=== PATIENT | male | born 1985 | race Caucasian/White ===

== ENCOUNTER 2018-12-01 18:37 | Emergency (ER) | payer MEDICAID, SELFPAY ==
[2018-12-01 18:38] VITALS: BP 136/100; PULSE 96; RESP 17; TEMP 37; O2SAT 98; BMI 24.9
--- NOTE | 2018-12-01 18:45 | RAD_ITS ---
STUDY: X-RAY - RIGHT SHOULDER REASON FOR EXAM: Male, 33 years old. Fall and pain TECHNIQUE: 2 view(s) of the shoulder. COMPARISON: None. FINDINGS: Normal glenohumeral articulation. Mild acromioclavicular separation. There is 6 mm of upward displacement of the clavicle relative to the acromion. Normal acromion. Normal humeral head and visualized proximal humerus. The soft tissue structures are unremarkable. Normal visualized pulmonary apex. RAD/Shoulder min 2 Views IMPRESSION: Mild acromioclavicular separation. No fractures are seen. Electronically Signed: Torsten Alcazar MD at 19:01 EDT Tel , Service support ,
--- NOTE | 2018-12-01 19:14 | ED.DEP ---
ED Disposition - Plan for ED Patient: Instructions: ED Sprain AC Joint Referrals: Care Physician,No Primary [Primary Care Provider] - Javon Ortiz MD [STAFF PHYSICIAN] - Additional Instructions: Take Motrin 600 mg 3 times a day for pain ice elevation the sling
[2018-12-01] MEDS: Ibuprofen 400 MG Tablet PO (19:15)
[2018-12-01] MEDS: Ketorolac 60 MG/2 ML Vial IM (19:15)
--- NOTE | 2018-12-01 19:15 | ED.VISSUMM ---
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, he was playing kickball rounding the bases when he tripped and he landed awkwardly in his right shoulder he has only complaints of right shoulder pain, no other complaints no head neck chest or abdominal pain Physical Examination: [] v Signs are within normal range General, no distress resting comfortably HEENT is generally unremarkable The neck is supple no adenopathy Cardiovascular, regular rate and rhythm Lungs, clear bilateral Abdomen, soft nontender Extremities, no clubbing cyanosis or edema, he has an abrasion over the right shoulder region, there is no instability deformity, he can move the shoulder but has some discomfort, he points really to the anterior clavicle region, the humerus elbow forearm wrist and hand are unremarkable 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 and normal function to the wrist hand and thumb movement, the rest of his exam is unremarkable Neurologic, awake alert answering questions appropriately moving all 4 extremities Test Results: [] Emergency Department Course and Treatment: [] X-ray per radiology shows an AC joint type separation 1 versus 2 not total I explained this the patient I spent the concept of other occult injuries need to follow with orthopedics, He is treated with IM Toradol will try to provide him home pack for Motrin as apparently he has some type of special requirement related to his prescriptions or pain management that he can only get them through one type of provider or pharmacy he understands that he can use [id number] medications for this and follow-up with orthopedics wear the sling and ice Treatment Plan: [] Disposition: [] Home stable Impression: [] Fall with right shoulder injury AC joint separation This note was generated with [employer] dictation software. It may contain incorrect words, spelling, and punctuation that were not noted in review of the chart prior to signing ED Disposition - Plan for ED Patient: Instructions: ED Sprain AC Joint Referrals: Javon Ortiz MD [STAFF PHYSICIAN] - Care Physician,No Primary [Primary Care Provider] - Additional Instructions: Take Motrin 600 mg 3 times a day for pain ice elevation the sling
--- NOTE | 2018-12-01 19:18 | ED.DCSUM_ITS ---
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, he was playing kickball rounding the bases when he tripped and he landed awkwardly in his right shoulder he has only complaints of right shoulder pain, no other complaints no head neck chest or abdominal pain Physical Examination: [] v Signs are within normal range General, no distress resting comfortably HEENT is generally unremarkable The neck is supple no adenopathy Cardiovascular, regular rate and rhythm Lungs, clear bilateral Abdomen, soft nontender Extremities, no clubbing cyanosis or edema, he has an abrasion over the right shoulder region, there is no instability deformity, he can move the shoulder but has some discomfort, he points really to the anterior clavicle region, the humerus elbow forearm wrist and hand are unremarkable 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 function to the wrist hand and thumb movement, the rest of his exam is unremarkable Neurologic, awake alert answering questions appropriately moving all 4 extremities Test Results: [] Emergency Department Course and Treatment: [] X-ray per radiology shows an AC joint type separation 1 versus 2 not total I explained this the patient I spent the concept of other occult injuries need to follow with orthopedics, He is treated with IM Toradol will try to provide him home pack for Motrin as apparently he has some type of special requirement related to his prescriptions or pain management that he can only get them through one type of provider or pharmacy he understands that he can use [id number] medications for this and follow-up with orthopedics wear the sling and ice Treatment Plan: [] Disposition: [] Home stable Impression: [] Fall with right shoulder injury AC joint separation This note was generated with [employer] dictation software. It may contain incorrect words, spelling, and punctuation that were not noted in review of the chart prior to signing ED Disposition - Plan for ED Patient: Instructions: ED Sprain AC Joint Referrals: Javon Ortiz MD [STAFF PHYSICIAN] - Care Physician,No Primary [Primary Care Provider] - Additional Instructions: Take Motrin 600 mg 3 times a day for pain ice elevation the sling
[2018-12-01] MEDS: Diphth,Pertuss(Acell),Tet Vac 0.5 ML Vial IM (19:19)
[2018-12-01 19:29] VITALS: PULSE 89; RESP 16; O2SAT 100
== END 2018-12-01 19:29 | disposition home or self-care (01) ==
PROVIDERS: Emergency Provider Emergency Medicine
DX: S43.101A Unspecified dislocation of right acromioclavicular joint, initial encounter (principal); W01.0XXA Fall on same level from slipping, tripping and stumbling without subsequent striking against object, initial encounter; Y93.6A Activity, physical games generally associated with school recess, summer camp and children; Y92.89 Other specified places as the place of occurrence of the external cause; Y99.8 Other external cause status
CPT/HCPCS: 73030; 90471; 90715; 96372; 99283

== ENCOUNTER → 2019-01-21 | Outpatient (CLI) | payer MEDICAID, SELFPAY ==
[2019-01-15 13:06] VITALS: BMI 24.9
[2019-01-21 12:29] LABS: Absolute Lymphocyte Count 2.84 X10^3/ul (0.83-4.51); Absolute Neutrophil Count 5.5 X10^3/uL (2.0-7.7); Basophil# 0.06 X10^3/uL; Basophil% 0.6 % (0-1); Eosinophil# 0.24 X10^3/uL; Eosinophils% 2.5 % (0-5); Hematocrit 48.3 % (40-54); Hemoglobin 16.3 g/dl (13.0-16.5); Lymphocyte # 2.84 X10^3/ul (4.0); Lymphocyte % 29.8 % (19-41); Mean Corp Hgb Conc 33.7 g/gl (32-36); Mean Corpuscular Hgb 30.9 pg (27.0-32.0); Mean Corpuscular Volume 91.5 fL (80-94); Mean Platelet Vol. 12.3 fl (6.2-12.0); Monocyte# 0.86 X10^3/uL; Neutrophil # 5.51 X10^3/uL (2.7-7.7); Neutrophil % 57.9 % (47-70); Platelet Count 293 K/mm3 (150-450); RBC Distribution Width CV 15.3 % (11.6-14.6); RBC Distribution Width SD 50.9 fl (35.1-43.9); Red Blood Count 5.28 M/mm3 (4.6-6.2); White Blood Count 9.5 K/mm3 (4.4-11.0)
[2019-01-21 12:44] LABS: AST(SGOT) 80 U/L (15-37); Alanine Aminotransfer ALT/SGPT 347 U/L (16-61); Albumin, Serum 3.8 g/dL (3.2-5.0); Alkaline Phosphatase 112 U/L (45-117); Anion Gap 7 (5-15); BUN 15 mg/dL (7-18); BUN/Creat Ratio 13.2 RATIO (10-20); Calcium,Total 9.3 mg/dL (8.5-10.1); Chloride 105 mmol/L (98-107); Creatinine, Serum 1.14 mg/dL (0.70-1.30); EST Glomerular Filtration Rate 77 mL/min (>60); Est Glom Filt Rate - Afr Amer 94 mL/min (>60); Globulin 3.9 g/dL (2.2-4.2); Glucose 99 mg/dL (74-106); Potassium 4.1 mmol/L (3.5-5.1); Protein, Total 7.7 g/dL (6.4-8.2); Sodium Level 139 mmol/L (136-145)
[2019-01-21 12:46] LABS: POSITIVE COUNT NO; POSITIVE DIFFERENTIAL NO; POSITIVE MORPHOLOGY NO
[2019-01-22 12:08] LABS: HEPATITIS B SURFACE AG Confirm. indicated (Negative)
[2019-01-22 13:10] LABS: HBsAg Confirmation Positive (.)
== END | disposition home or self-care (01) ==
LOC: BIMLAB 09:06
PROVIDERS: PCP Internal Medicine; Visit Provider Internal Medicine
DX: F19.10 Other psychoactive substance abuse, uncomplicated (principal)
CPT/HCPCS: 36415; 80053; 85025; 87340

== ENCOUNTER 2019-07-01 14:49 | Emergency (ER) | payer SELFPAY ==
[2019-01-15 13:06] VITALS: BMI 24.9
[2019-07-01 14:51] VITALS: BP 146/88; PULSE 103; RESP 18; TEMP 36.6; O2SAT 97; BMI 24.3
--- NOTE | 2019-07-01 15:01 | RAD_ITS ---
STUDY: X-RAY - RIGHT HAND REASON FOR EXAM: Male, 34 years old. Pain following injury. TECHNIQUE: 3 view(s) of the hand. COMPARISON: None. FINDINGS: Normal radiocarpal articulation. Normal distal radioulnar joint. Normal visualized carpal bones. Normal carpal articulations Normal carpometacarpal articulation of the thumb. Normal second through fifth carpometacarpal joints. Normal metacarpi. Normal metacarpophalangeal joint of the thumb. Normal interphalangeal joint of the thumb. Normal proximal and distal phalanges of the thumb. Normal metacarpophalangeal joints of the second through fifth fingers. Normal proximal and distal interphalangeal joints of the second through fifth fingers. Normal phalanges of the second through fifth fingers. Soft tissue swelling overlying the proximal aspect of the fifth metacarpal. RAD/Hand Min 3 Views IMPRESSION: Soft tissue swelling. Electronically Signed: Kang Melara, at 15:24 EST , Service support ,
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
--- NOTE | 2019-07-01 15:36 | ED.DEP ---
ED Disposition - Plan for ED Patient: Disposition: Home or Assisted Living Instructions: CONTUSION, Hand Referrals: Berenice Jeffries MD [Primary Care Provider] - 1 Week if not improving Additional Instructions: Ice and elevate your right hand. Tylenol and Motrin for pain and swelling. Follow-up if not improving in 1 week. Your x-rays today did not show any signs of fracture or dislocation.
[2019-07-01] MEDS: Ibuprofen 200 MG Tablet 400 MG PO (15:41)
== END 2019-07-01 15:46 | disposition home or self-care (01) ==
PROVIDERS: Emergency Provider Emergency Medicine; Family Provider Internal Medicine; PCP Internal Medicine
DX: S60.221A Contusion of right hand, initial encounter (principal); W22.8XXA Striking against or struck by other objects, initial encounter; Y92.9 Unspecified place or not applicable; Y99.9 Unspecified external cause status; Z72.0 Tobacco use
CPT/HCPCS: 73130; 99283

== ENCOUNTER → 2023-07-20 | Outpatient (CLI) | payer BC, MEDICAID, SELFPAY ==
--- NOTE | 2023-07-20 07:30 | MRI_ITS ---
STUDY: MRI RIGHT KNEE REASON FOR EXAM: Male, 38 years old. Right knee pain. TECHNIQUE: Standardized fat and water weighted pulse sequences were obtained in all 3 orthogonal planes. COMPARISON: None. FINDINGS: There is a horizontal-oblique undersurface tear of the posterior horn of the medial meniscus. There is mild reactive subchondral marrow edema in the medial tibial plateau. Normal hyaline cartilage of the medial femorotibial compartment. Normal medial femoral condyle and tibial plateau. Normal medial collateral ligamentous complex (MCL). Normal distal semimembranosus, gracilis and semitendinosus tendons. Normal lateral meniscus. Normal hyaline cartilage of the lateral femorotibial compartment. Normal lateral femoral condyle and tibial plateau. Normal proximal tibiofibular articulation. Normal lateral collateral (fibular) ligament. Normal popliteus tendon. Normal biceps femoris tendon. Normal anterior cruciate ligament (ACL). Normal posterior cruciate ligament (PCL). Normal congruent patellofemoral articulation. Normal hyaline cartilage of the patellofemoral compartment. Normal medial and lateral patellar retinaculum. Normal quadriceps tendon. Normal patellar tendon. Normal Hoffa''s fat pad. There is a moderate volume joint effusion. There is no popliteal cyst. There is minimal subcutaneous soft tissue edema along the anterior aspect of the knee. There is no acute fracture. MRI/Lower Ext Joint Only (Routine) IMPRESSION: Horizontal-oblique undersurface tear of the posterior horn of the medial meniscus. Mild reactive subchondral marrow edema in the medial tibial plateau. Moderate joint effusion. Minimal subcutaneous soft tissue edema along the anterior aspect of the knee. Electronically Signed: Mert Greenberg MD at 10:47 EST ,
== END | disposition home or self-care (01) ==
PROVIDERS: PCP Internal Medicine; Visit Provider Physician Assistant Surgical
DX: M25.561 Pain in right knee (principal)
CPT/HCPCS: 73721

== ENCOUNTER → 2024-09-30 | Outpatient (CLI) | payer BC, SELFPAY ==
--- NOTE | 2024-09-30 17:11 | RAD_ITS ---
PROCEDURE: CERV SPINE 2 OR 3 VIEWS REASON FOR EXAM: Pain. History of injury. TECHNIQUE: AP and lateral views of the cervical spine. Odontoid view. COMPARISON: None. FINDINGS: Cervical vertebral bodies maintain normal height and alignment. There is mild disc space narrowing at C5-C6 with anterior endplate spurring. No acute fracture or subluxation is present. Prevertebral soft tissues are unremarkable. Atlantodental interval is intact. Odontoid process is intact. Lateral masses align. RAD/Cerv Spine 2 or 3 Views IMPRESSION: 1. No acute osseous abnormality. If clinical concern for radiculopathy, MRI is a more sensitive exam. 2. Mild degenerative changes at C5-C6. Reading Location: [facility]
== END | disposition home or self-care (01) ==
PROVIDERS: PCP Internal Medicine; Visit Provider Anesthesiology Pain Medicine
DX: M54.16 Radiculopathy, lumbar region (principal)
CPT/HCPCS: 72040